=== PATIENT | male | born 1940 | race Caucasian/White ===

== ENCOUNTER 2017-08-20 08:20 | Emergency (ER) | payer OTHER, MEDICARE ==
[2017-08-20 08:53] VITALS: BP 162/72
--- NOTE | 2017-08-20 09:38 | UC ---
Theo Ellis Angela, [facility] 08/20/17 at 0900 . General HPI - HPI Summary HPI Summary: In Room Note: This pt is a 77 y/o male presenting to [facility] for muscle ache x2 days. Pt reports he was seen in his PCP's office 9 days ago and was diagnosed with pneumonia. His pulse ox 9 days ago was 94 (same as today). He was prescribed Levaquin for 10 days and has taken 9 pills of Levaquin so far. Pt didn't have a fever in the past 9 days. He reports still having a cough, but states it has improved since onset. Pt notes he has developed muscle ache in both upper arms, more left than right, and nausea after he started taking Levaquin. He states pain on the trapezius muscle on both sides, near the neck. Pt denies decreased ROM, fever, chest pain, abd pain. Pt reports that after he started Levaquin, his constipation has resolved. He has an upcoming appointment with his PCP on Monday , 08/25/17. Pt is a former smoker, quit 10-15 years ago. PMHx includes hypertension, hypothyroidism. MD Note: Visit history significant for hypothyroidism and hypertension, being treated. BP 162/72, pulse ox 94. Nurses Note: being treated with levaquin 750mg for pneumonia arrives with c/o muscle soreness and discomfort has not taken last dose - History of Current Complaint Chief Complaint: UCGeneralIllness Stated Complaint: SORE MUSCLES Time Seen by Provider: 08/20/17 08:54 Hx Obtained From: Patient Onset/Duration: Lasting Days, Still Present Timing: Constant Pain Location at: bilateral upper arms Associated Signs & Symptoms: Positive: Cough, Nausea, Other - myalgia. Negative : Abdominal Pain, Chest Pain, Fever - Allergy/Home Medications Allergies/Adverse Reactions: Allergies Allergy/AdvReac Type Severity Reaction Status Date / Time Levofloxacin Allergy muscle Verified 08/20/17 08:30 soreness Home Medications: Home Medications Levofloxacin [Levaquin] 750 mg PO DAILY 08/20/17 [History Confirmed 08/20/17] Levothyroxine TAB* [Synthorid 112 MCG TAB*] 112 mcg PO DAILY 08/20/17 [History Confirmed 08/20/17] Metoprolol Succinate [Metoprolol Succinate ER] 200 mg PO DAILY 08/20/17 [ History Confirmed 08/20/17] Simvastatin [Zocor 40 MG (NF)] 40 mg PO DAILY 08/20/17 [History Confirmed ] Terazosin CAP* [Hytrin CAP 5 MG*] 10 mg PO DAILY 08/20/17 [History Confirmed 06/27] Trimethoprim TAB* 100 mg PO DAILY 08/20/17 [History Confirmed 08/20/17] PMH/Surg Hx/FS Hx/Imm Hx - Additional Past Medical History Additional PMH: PMHx: chronic renal disease Endocrine History: Thyroid Disease - hypothyroidism Cardiovascular History: Hypertension - Family History Known Family History: Positive: Hypertension - mother - Social History Alcohol Use: None Substance Use Type: None Smoking Status (MU): Former Smoker Review of Systems Constitutional: Negative Skin: Negative Eyes: Negative ENT: Negative Respiratory: Cough Cardiovascular: Negative Gastrointestinal: Nausea, Other - NEG: vomiting, abd pain Genitourinary: Negative Motor: Negative Neurovascular: Negative Musculoskeletal: Myalgia Neurological: Negative Psychological: Negative All Other Systems Reviewed And Are Negative: Yes Physical Exam Triage Information Reviewed: Yes Vital Signs: Initial Vital Signs Temp 98 F 08/20/17 08:45 Pulse 68 08/20/17 08:45 Resp 16 08/20/17 08:45 BP 162/72 08/20/17 08:45 Pulse Ox 94 08/20/17 08:45 Vital Signs Reviewed: Yes - Additional Comments The patient is well-nourished in no acute distress and in no acute pain. The skin is warm and dry and skin color reflects adequate perfusion. HEENT: The head is normocephalic and atraumatic. The pupils are equal and reactive. The conjunctivae are clear and without drainage. Nares are patent and without drainage. Mouth reveals moist mucous membranes and the throat is without erythema and exudate. The external ears are intact. The ear canals are patent and without drainage. The tympanic membranes are intact. Neck is supple with full range of motion and non-tender. There are no carotid bruits. There is no neck vein distension. Respiratory: Chest is non-tender. Lungs are clear to auscultation and breath sounds are symmetrical and equal. THERE IS AN EXTENDED EXPIRATORY PHASE. Cardiovascular: Hear is regular rate and rhythm. There is no murmur or rub auscultated. There is no peripheral edema and pulses are symmetrical and equal. Abdomen: The abdomen is soft and non-tender. There are normal bowel sounds heard in all four quadrants and there is no organomegaly palpated. NO CVA TENDERNESS. Musculoskeletal: There is no back pain noted. Extremities are non-tender with full range of motion. There is good capillary refill. There is no peripheral edema or calf tenderness elicited. DISCOMFORT WITH RAISING THE ARMS. DISCOMFORT IN THE TRAPEZIUS REGION WITH RAISING THE ARMS. Neurological: Patient is alert and oriented to person, place and time. The patient has symmetrical motor strength in all four extremities. Cranial nerves are grossly intact. Deep tendon reflexes are symmetrical and equal in all four extremities. Psychiatric: The patient has an appropriate affect and does not exhibit any anxiety or depression. Course/Dx - Course Course Of Treatment: Medications have been included in the original chart and reviewed. Elevated BP but has current hypertension diagnosis. In the physical exam, the pt has AN EXTENDED EXPIRATORY PHASE. DISCOMFORT WITH RAISING THE ARMS. DISCOMFORT IN THE TRAPEZIUS REGION WITH RAISING THE ARMS. NO CVA TENDERNESS. COT: The pt has multiple medical problems including HTN, hypothyroidism, and chronic kidney disease. He developed muscle aches after 7 days on Levaquin. He also is experiencing nausea. It sounds as if his pneumonia is resolving. He has not had a temperature and his cough is less severe. I advised him to stop the Levaquin and to re-check with his doctor for increased muscle aches, fever, chest pain, or shortness of breath. He is scheduled to be seen by his physician in 5 days. He understands the need to be seen sooner if any of the above signs or symptoms occur. - Differential Dx - Multi-Symptom Differential Diagnoses: Other - Myopathy, muscle aches from URI, adverse drug reaction Provider Diagnoses: 1. Adverse drug reaction to Levaquin. 2. Resolving pneumonia Discharge - Discharge Plan Condition: Stable Disposition: HOME Patient Education Materials: Levofloxacin (By mouth), Community Acquired Pneumonia (ED) Referrals: Bryson Harrison DO [Primary Care Provider] - Additional Instructions: Your blood pressure reading today was 162/72. Follow-up with your primary care provider within 4 weeks for blood pressure readings and further evaluation. Thank you for helping us improve patient care by filling out the My Point Survey. WE DISCUSSED: 1. Your pneumonia is getting better. 2. You are having muscle aches from the Levaquin. Don't take final dose. Don' t take this drug in the future if you can take another drug. 3. See your doctor in 5 days; sooner for increased pain or signs of pneumonia such as shortness of breath, fever, increased cough. PLEASE SEEK CARE AT THE EMERGENCY DEPARTMENT IF SYMPTOMS WORSEN OR IF NEW SYMPTOMS DEVELOP. FOLLOW UP WITH YOUR PRIMARY CARE PHYSICIAN. The documentation as recorded by the Theo lopez Angela accurately reflects the service I personally performed and the decisions made by me, Car Arcos MD.
== END 2017-08-20 09:27 | disposition home or self-care (01) ==
LOC: UCEAST 08:20
DX: M79.1 Myalgia (principal); T37.8X5A Adverse effect of other specified systemic anti-infectives and antiparasitics, initial encounter; J18.9 Pneumonia, unspecified organism; I12.9 Hypertensive chronic kidney disease with stage 1 through stage 4 chronic kidney disease, or unspecified chronic kidney disease; N18.9 Chronic kidney disease, unspecified; E03.9 Hypothyroidism, unspecified; Z87.891 Personal history of nicotine dependence; Z88.1 Allergy status to other antibiotic agents
CPT/HCPCS: 99211; G0463

== ENCOUNTER 2019-02-09 09:09 | Emergency (ER) | payer MEDICARE, OTHER ==
--- OUTSIDE RECORDS SUMMARY | 2019-02-09 09:17 | XMS REPORT | Continuity of Care Document ---
:1940 External Reference #:[id number] Author Name Hui Norton NP Address [address] [place] [address] Care Team Providers Name Role Phone Farhan Gregg M.D. Care Team Information Peer Support Specialist Unavailable Payers Date Identification Numbers Payment Provider Subscriber Policy Number: [id number] Medicare Chris Eaton PayID: [id number] [address] [place] [address] Policy Number: [id number] [employer] Chris Eaton Group Name: [id number] [address] [place] [address] Social History Type Date Description Comments Sex Unknown Marital Status Occupation Retired Tobacco Use Start: Unknown Currently Smokes an Occasional Cigar ETOH Use Never used alcohol Allergies, Adverse Reactions, Alerts Description No Known Drug Allergies Medications Active Medications SIG Qnty Indications Ordering Provider Date Simvastatin qday Unknown 40mg Tablets Metoprolol Succinate ER qday Unknown 200mg Tablets ER 24HR Terazosin HCL qhs Unknown 10mg Capsules Levothyroxine Sodium qday Unknown 125mcg Tablets Aspirin 81mg qday Unknown Tablets DR History Medications Methenamine Hippurate qday Unknown - 06/11/2012 1gm Tablets Glenn Low Strength Unknown - 07/15/[address] Trimethoprim 1 tab po qd Unknown - 01/17/2019 100mg Tablets Vital Signs Date Vital Result Comment 01/17/2019 10:44am Weight 206.00 lb Height 64 inches 5'4" BMI (Body Mass Index) 35.4 kg/m2 BP Systolic 153 mmHg BP Diastolic 71 mmHg Heart Rate 61 /min O2 % BldC Oximetry 94 % Body Temperature 97.0 F Henley Score 6 Pain Level 0 12/07/2017 9:00am Weight 205.12 lb Height 64 inches 5'4" BMI (Body Mass Index) 35.2 kg/m2 BP Systolic 129 mmHg BP Diastolic 70 mmHg Heart Rate 55 /min O2 % BldC Oximetry 97 % Body Temperature 96.8 F Henley Score 7 Pain Level 0 08/25/2015 9:03am Weight 217.50 lb Height 64 inches 5'4" BMI (Body Mass Index) 37.3 kg/m2 BP Systolic 132 mmHg BP Diastolic 78 mmHg Heart Rate 55 /min O2 % BldC Oximetry 97 % Body Temperature 97.9 F Henley Score 3 Pain Level 0 08/19/2014 10:05am Weight 220.38 lb Height 64 inches 5'4" BMI (Body Mass Index) 37.8 kg/m2 BP Systolic 140 mmHg BP Diastolic 70 mmHg Heart Rate 65 /min O2 % BldC Oximetry 97 % Body Temperature 97.8 F Henley Score 7 Neck Circumference in inches 18 Pain Level 0 07/15/2013 10:27am Weight 219.00 lb Height 64 inches 5'4" BMI (Body Mass Index) 37.6 kg/m2 BP Systolic 140 mmHg BP Diastolic 78 mmHg Heart Rate 75 /min O2 % BldC Oximetry 98 % Body Temperature 97.7 F epworth-/24 06/11/2012 8:15am Weight 204.00 lb Height 64 inches 5'4" BMI (Body Mass Index) 35.0 kg/m2 BP Systolic 142 mmHg BP Diastolic 82 mmHg Heart Rate 66 /min O2 % BldC Oximetry 94 % Body Temperature 96.9 F Neck 17.25 inches, Epw 04/0305/09/2011 8:37am Weight 197.12 lb Height 64 inches 5'4" BMI (Body Mass Index) 33.8 kg/m2 BP Systolic 126 mmHg BP Diastolic 80 mmHg Heart Rate 52 /min O2 % BldC Oximetry 96 % Body Temperature 97.3 F 04/27/2010 9:55am Weight 197.00 lb Height 64.5 inches 5'4.50" BMI (Body Mass Index) 33.3 kg/m2 BP Systolic 148 mmHg BP Diastolic 80 mmHg Heart Rate 54 /min O2 % BldC Oximetry 98 % Body Temperature 98.1 F 10/26/2009 2:56pm Weight 199.12 lb Height 64.5 inches 5'4.50" BMI (Body Mass Index) 33.6 kg/m2 BP Systolic 130 mmHg BP Diastolic 80 mmHg Heart Rate 64 /min O2 % BldC Oximetry 95 % Body Temperature 97.8 F Neck-16.75" Procedures Date Code Description Status 12/27/2009 97013 Sleep Stage 4 Or More Cpap Titra Completed 11/22/2009 91133 Sleep Staging 4Or More Para Completed Encounters Type Date Location Provider Dx Diagnosis Office Visit 01/17/2019 Main Office Hui Norton G47.33 Obstructive sleep 10:45a [employer] apnea (adult) (pediatric) Office Visit 12/07/2017 Main Office Hui Norton G47.33 Obstructive sleep 8:45a [employer] apnea (adult) (pediatric) Office Visit 08/25/2015 Main Office Hui Norton G47.33 Obstructive sleep 8:45a [employer] apnea (adult) (pediatric) Office Visit 08/19/2014 Main Office Hui Norton, 327.23 Obstructive Sleep 10:00a [employer] Apnea Adult & Pediatric Office Visit 07/15/2013 Main Office Gurwinder 327.23 Obstructive Sleep 10:15a [place] Cal[place] Apnea Adult & Pediatric Office Visit 06/11/2012 Main Office Gurwinder, 327.23 Obstructive Sleep 8:15a [place] Apnea Adult & Pediatric 474.10 Hypertrophy Tonsils W/ Adenoids 995.3 Allergy Unspec Office Visit 05/09/2011 8:30a Main Office Gurwinder 327.23 Obstructive Sleep [place] Apnea Adult & Pediatric 470 Deviated Nasal Septum Office Visit 04/27/2010 10:00a Main Office Gurwinder 327.23 Obstructive Sleep [place] Apnea Adult & Pediatric Office Visit 12/08/2009 1:45p Main Office Farhan Gregg, 327.23 Obstructive Sleep M.DCasey Apnea Adult & Pediatric 470 Deviated Nasal Septum 780.50 Sleep Disturbance Unspec Office Visit 10/26/2009 3:00p Main Office Soha High PA 470 Deviated Nasal Septum 780.50 Sleep Disturbance Unspec
--- OUTSIDE RECORDS SUMMARY | 2019-02-09 09:17 | XMS REPORT | Continuity of Care Document ---
:1940 External Reference #:[id number] Author Name Tamica George Care Team Providers Name Role Phone Pee Gannon MD Care Team Information Ship Surveyor Unavailable Pee Gannon MD Primary Care Physician Unavailable Payers Date Identification Numbers Payment Provider Subscriber Policy Number: [id number] Medicare Chris Eaton PayID: [id number] [address] [place] [address] Policy Number: [id number] [facility] Chris Eaton Group Name: [id number] [address] [place] [address] Social History Type Date Description Comments Sex [...] Oximetry 94 % Body Temperature 97.0 F Pain Level 0 12/07/2017 9:00am Weight 205.12 lb Height 64 inches 5'4" BMI (Body Mass Index) 35.2 kg/m2 BP Systolic 129 mmHg BP Diastolic 70 mmHg Heart Rate 55 /min O2 % BldC Oximetry 97 % Body Temperature 96.[address] Score 7 Pain Level 0 08/25/2015 9:03am Weight 217.50 lb Height 64 inches 5'4" BMI (Body Mass Index) 37.3 kg/m2 BP Systolic 132 mmHg BP Diastolic 78 mmHg Heart Rate 55 /min O2 % BldC Oximetry 97 % Body Temperature 97.[address] Score 3 Pain Level 0 08/19/2014 10:05am Weight 220.38 lb Height 64 inches 5'4" BMI (Body Mass Index) 37.8 kg/m2 BP Systolic 140 mmHg BP Diastolic 70 mmHg Heart Rate 65 /min O2 % BldC Oximetry 97 % Body Temperature 97.[address] Score 7 Neck Circumference in inches 18 [...] Temperature 96.9 F Neck 17.25 inches, Epw 24 05/09/2011 8:37am Weight 197.12 lb Height 64 inches [...] Neck-16.75" Procedures Date Code Description Status 12/27/2009 31092 Sleep Stage 4 Or More Cpap Titra Completed 11/22/2009 94438 Sleep Staging 4Or More Para Completed Encounters Type Date Location Provider Dx Diagnosis Office Visit 12/07/2017 Main Office Hui Norton, G47.33 Obstructive sleep 8:45a RN [facility] apnea (adult) (pediatric) Office Visit 08/25/2015 Main Office Hui Norton G47.33 Obstructive sleep 8:45a RN [facility] apnea (adult) (pediatric) Office Visit 08/19/2014 Main Office Hui Norton, 327.23 Obstructive Sleep 10:00a RN [facility] Apnea Adult & Pediatric Office Visit 07/15/2013 [...]
[2019-02-09 09:23] VITALS: BP 160/89
--- NOTE | 2019-02-09 09:29 | UC ---
Respiratory Complaint HPI - HPI Summary HPI Summary: 78 y/o male presents to the urgent care c/o productive cough w/ yellowish phlegm for the past month. Pt reports symptoms started w/ the common cold, nasal congestion, sinus pressure and moderate yellowish PND. He thinks symptoms are coming down to his chest for the past week. He developed mild wheezing last night. He stopped smoking a few years ago. He has has Hx of pneumonia in the past. He hs taken OTC medications w/o any improvement. He went to his PCP about a week ago and Rx Nasal spray and advised symptomatic treatment. Pt denies fever, chill, SOB, chest pain, abdominal pain, N/V/D. - History of Current Complaint Chief Complaint: UCRespiratory Stated Complaint: CHEST CONGESTION Time Seen by Provider: 02/09/19 09:28 Hx Obtained From: Patient Onset/Duration: Gradual Onset, Lasting Weeks - 4 weeks, Still Present, Worse Since - 3 days Timing: Intermittent Episodes Severity Initially: Mild Severity Currently: Moderate Pain Intensity: 0 Pain Scale Used: 0-10 Numeric Character: Cough: Productive, Sputum Description: - yellowish Aggravating Factors: Recumbent Position Alleviating Factors: OTC Meds Associated Signs And Symptoms: Positive: Wheezing - mild last night, URI, Nasal Congestion, Sinus Discomfort. Negative: Fever, Chills - Risk Factors Pulmonary Embolism Risk Factors: Negative Cardiac Risk Factors: Negative Pseudomonas Risk Factors: Negative Tuberculosis Risk Factors: Negative - Allergies/Home Medications Allergies/Adverse Reactions: Allergies Allergy/AdvReac Type Severity Reaction Status Date / Time levofloxacin Allergy See Comment Verified 02/09/19 09:24 PMH/Surg Hx/FS Hx/Imm Hx Previously Healthy: Yes Endocrine History: Hypothyroidism, Dyslipidemia Cardiovascular History: Hypertension - Surgical History Surgical History: None - Family History Known Family History: Positive: Cardiac Disease, Hypertension - mother, Diabetes - Social History Occupation: Employed Full-time Lives: With Family Alcohol Use: None Substance Use Type: None Smoking Status (MU): Former Smoker Review of Systems All Other Systems Reviewed And Are Negative: Yes Constitutional: Positive: Negative Skin: Positive: Negative Eyes: Positive: Negative ENT: Positive: Nasal Discharge - yellowish, Sinus Congestion, Sinus Pain/ Tenderness, Other - PND moderate yellowish Respiratory: Positive: Cough - productive cough w/ yellowish phlegm, Other - mild wheezing since last night Cardiovascular: Positive: Negative Gastrointestinal: Positive: Negative Genitourinary: Positive: Negative Motor: Positive: Negative Neurovascular: Positive: Negative Musculoskeletal: Positive: Negative Neurological: Positive: Negative Psychological: Positive: Negative Is Patient Immunocompromised?: No Physical Exam - Summary Physical Exam Summary: Vital Signs Reviewed: Yes General: well developed, well nourished obese male sitting in the examining table w/o any apparent distress Eyes: Positive: Conjunctiva Clear - PERRLA, EOMI, fundi grossly normal ENT: Positive: Normal ENT inspection, Hearing grossly normal, Pharynx normal, Nasal congestion - edematous and erythematous nasal mucosa, Nasal drainage - yellowish drainage, TMs normal. Negative: Tonsillar swelling, Tonsillar exudate Neck: Positive: Supple, Nontender, No Lymphadenopathy Respiratory: no orthopnea or dyspnea. Able to speak in full sentences, no retractions or accessory muscle use, no tripod position, stridor, or head bobbing. Positive breath sounds bilaterally. diffuse scattered rhonchi and mild on b/L lungs, mild wheezing in the posterior RT upper lung no crackles or rales. Cardiovascular: Positive: RRR, No Murmur, Pulses Normal, Brisk Capillary Refill Abdomen Description: Positive: Nontender, No Organomegaly, Soft. Negative: CVA Tenderness (R), CVA Tenderness (L) Bowel Sounds: Positive: Present Musculoskeletal Exam: Normal Musculoskeletal: Positive: Strength Intact, ROM Intact, No Edema Neurological Exam: Normal Psychological Exam: Normal Skin Exam: Normal Triage Information Reviewed: Yes Vital Signs: Initial Vital Signs Temp 98.5 F 02/09/19 09:20 Pulse 74 02/09/19 09:20 Resp 18 02/09/19 09:20 BP 160/89 02/09/19 09:20 Pulse Ox 95 02/09/19 09:20 Respiratory Course/Dx - Course Course Of Treatment: 78 y/o male presents to the urgent care c/o productive cough w/ yellowish phlegm for the past month. Pt reports symptoms started w/ the common cold, nasal congestion, sinus pressure and moderate yellowish PND. He thinks symptoms are coming down to his chest for the past week. He developed mild wheezing last night. He stopped smoking a few years ago. He has has Hx of pneumonia in the past. He hs taken OTC medications w/o any improvement. He went to his PCP about a week ago and Rx Nasal spray and advised symptomatic treatment. Pt denies fever, chill, SOB, chest pain, abdominal pain, N/V/D. Hx obtained. Pt w/ diffuse scattered rhonchi and mild on b/L lungs, mild wheezing in the posterior RT upper lung no crackles or rales on examination. O2sat:95. Chest X-ray ordered to r/o pneumonia. Impression: A MILD DEGREE OF PERIBRONCHIAL CUFFING COULD BE SEEN IN THE SETTING OF BRONCHITIS. INCREASED DENSITY OF THE PARENCHYMA COULD BE DUE TO MILD PULMONARY EDEMA as per radiologist. Pt used to be heavy smoker. Pt given Duoneb treatment ordered. Pt tolerated well treatment and lungs improved. Pt states feeling better. Pt will be Tx for Acute Bronchitis, Rx Doxycycline PO , Tessalon tabs, and albuterol Inhaler. Strongly advised to f/u with PCP for further management. He may be developing COPD. He also has elevated BP today, advised to decrease salt in his diet and monitor BP, if it continues to be elevated to f/u with her PCP. Pt understood and agreed with D/C instructions and left the clinic hemodynamically stable. - Differential Dx/Diagnosis Differential Diagnosis/HQI/PQRI: Bronchitis, Exacerbation Of COPD, Influenza, Sinusitis, Other - pneumonia Provider Diagnosis: Acute bronchitis, Uncontrolled hypertension Discharge - Sign-Out/Discharge Documenting (check all that apply): Patient Departure - D/C home All imaging exams completed and their final reports reviewed: Yes - Discharge Plan Condition: Stable Disposition: HOME Prescriptions: Albuterol HFA INHALER* [Ventolin HFA Inhaler*] 1 - 2 puff INH Q6H PRN #1 mdi PRN Reason: wheezing/cough Benzonatate CAP* [Tessalon 100 MG CAP*] 100 mg PO TID PRN #21 cap PRN Reason: Cough DOXYcycline CAP(*) [DOXYcycline 100MG CAP(*)] 100 mg PO BID #20 cap Patient Education Materials: Acute Bronchitis (ED) Referrals: Bryson Harrison DO [Primary Care Provider] - 2 Days Additional Instructions: 1-Please take full course of antibiotic to avoid resistance. Take yougurt w/ probitoics or Culturelle to protect your GI system 2-Take Tessalon PO tabs as directed and use the albuterol inhaler to alleviate cough. Increase fluid intake, rest and eat well. 3- If symptoms do not improve or worsen or your develop SOB with fever and severe wheezing please go immediately to the ER further evaluation and treatment. 4- F/u with your PCP in 2-3 days for further management you may be developing COPD 5-Your BP is elevated today. Please take your BP medications and decrease salt in your diet, monitor BP and if it continues to be elevated please f/u with your PCP for further management. If you develop chest pain, dizziness, visual disturbances, SOB, or severe GOMEZ please go immediately to the ER for further management - Billing Disposition and Condition Condition: STABLE Disposition: Home
[2019-02-09] MEDS ORDERED: Albuterol/Ipratropium NEB.SOL* Albuterol 2.5 MG/Ipratropium 0.5 MG 3 ML INH ONE (09:35)
== END 2019-02-09 10:43 | disposition home or self-care (01) ==
LOC: UCEAST 09:09
DX: J20.9 Acute bronchitis, unspecified (principal); I10 Essential (primary) hypertension; E03.9 Hypothyroidism, unspecified; E78.5 Hyperlipidemia, unspecified; Z87.891 Personal history of nicotine dependence
CPT/HCPCS: 71046; 99212; A9270-GY; G0463

== ENCOUNTER 2023-12-12 11:19 | Inpatient (IN) ==
[2023-12-12 11:59] LABS: Venous Bicarbonate HCO3 24.9 mmol/L (24-28)
[2023-12-12 12:04] LABS: ABS Lymphocytes 1.2 10^3/uL (1.0-4.8); ABS Neutrophils 5.8 10^3/uL (1.5-7.6); Hematocrit 39.9 % (38-53); Hemoglobin 13.9 g/dL (13.2-16.3); Mean Corpuscular Hemoglobin 32.5 pg (27-33); Mean Corpuscular Hgb Conc 34.8 g/dL (31-36); Mean Corpuscular Volume 93.4 fL (80-97); Mean Platelet Volume 9.8 fL (7.5-11.2); Platelet Count 189 10^3/uL (150-450); Red Blood Count 4.27 10^6/uL (4.06-5.63); Red Cell Distribution Width 13.4 % (12-17); White Blood Count 7.6 10^3/uL (3.6-10.2)
[2023-12-12 12:05] LABS: ABS Eosinophils 0.1 10^3/uL (0.0-0.5); ABS Monocytes 0.4 10^3/uL (0.0-1.1); ABS Nucleated RBC 0.01 10^3/ul; Eosinophil % 1.6 %; Lymphocyte % 15.5 %; Nucleated Red Blood Cells % 0.1 %/100WBC (0.0-0.8)
[2023-12-12 12:08] LABS: Urine Appearance Clear; Urine Bilirubin Negative (Negative); Urine Blood Negative (Negative); Urine Color Light-Yellow; Urine Glucose Negative (Negative); Urine Ketones Negative (Negative); Urine Nitrite Negative (Negative); Urine Protein Negative (Negative); Urine Specific Gravity 1.009 (1.002-1.030); Urine Urobilinogen Negative (Negative)
[2023-12-12] MEDS: NS 0.9% 1000 ml BAG 1,000 ML IV ONE (12:08)
[2023-12-12] MEDS: Charcoal ACTIVATED 25 GM/120 ML BTL PO ONE (12:13)
[2023-12-12 12:16] LABS: Activated Partial Thrombo Time 29.4 seconds (26.0-38.0); INR 1.05 (0.83-1.13)
[2023-12-12 12:29] LABS: High Sens Troponin Baseline 8 pg/mL (<20)
[2023-12-12 12:38] LABS: Urine Benzodiazepine Screen None Detected (None Detect); Urine Cannabinoids Screen None Detected (None Detect); Urine Opiates Screen None Detected (None Detect)
[2023-12-12] MEDS: Acetylcysteine IV 15,000 MG in D5W 250 ml BAG 200 ML IV ONE (12:44)
[2023-12-12 12:50] LABS: ALT 15 U/L (7-52); AST 18 U/L (13-39); Albumin 4.2 g/dL (3.2-5.2); Albumin/Globulin Ratio 1.5 (1-3); Alkaline Phosphatase 70 U/L (35-149); Anion Gap 11 mmol/L (2-16); Blood Urea Nitrogen 31 mg/dL (6-24); CO2 Carbon Dioxide 25 mmol/L (22-32); Calcium 9.4 mg/dL (8.6-10.3); Chloride 101 mmol/L (101-111); Creatinine, Serum 1.62 mg/dL (0.67-1.17); Globulin 2.8 g/dL (2-4); Glucose 194 mg/dL (70-100); Lipase 32 U/L (11.0-82.0); Potassium 4.5 mmol/L (3.5-5.0); Sodium 137 mmol/L (135-145); Total Bilirubin 0.4 mg/dL (0.2-1.0); eGFR CKD-EPI 41.9 (>60)
[2023-12-12 12:53] LABS: Acetaminophen 54 mcg/mL
[2023-12-12 13:00] LABS: TSH Ultra Thyroid Stim Horm 1.26 mcIU/mL (0.34-5.60)
[2023-12-12 13:02] LABS: Alcohol, S < 13 mg/dL (<13); Salicylate < 2.50 mg/dL (<30)
[2023-12-12 13:29] LABS: High Sensitivity Troponin 1 Hr 7 pg/mL (<20)
[2023-12-12] MEDS: Acetylcysteine IV 5,000 MG in D5W 500 ml BAG 500 ML IV ONE (13:58)
[2023-12-12] MEDS ORDERED: Atropine 0.1 MG/ML 10 ml SYR (1 mg) IV PUSH PRN ×2 (17:01→17:20)
[2023-12-12 17:10] LABS: Albumin/Globulin Ratio 1.5 (1-3); Calcium 8.8 mg/dL (8.6-10.3); Creatinine, Serum 1.52 mg/dL (0.67-1.17); Globulin 2.7 g/dL (2-4); Potassium 4.1 mmol/L (3.5-5.0); Total Bilirubin 0.4 mg/dL (0.2-1.0); Total Protein 6.7 g/dL (6.4-8.9); eGFR CKD-EPI 45.2 (>60)
[2023-12-12] MEDS: Enoxaparin 100 MG/ML SYR SUBCUT SCH (18:02)
[2023-12-12] MEDS: Acetylcysteine IV 10,000 MG in D5W 1000 ml BAG 1,000 ML IV ONE (18:03)
[2023-12-12 23:38] LABS: INR 1.25 (0.83-1.13)
[2023-12-13 00:24] LABS: Acetaminophen < 15 mcg/mL
[2023-12-13 00:32] LABS: ALT 15 U/L (7-52); Albumin/Globulin Ratio 1.4 (1-3); Alkaline Phosphatase 57 U/L (35-149); Globulin 2.8 g/dL (2-4); Total Bilirubin 0.5 mg/dL (0.2-1.0); Total Protein 6.8 g/dL (6.4-8.9)
[2023-12-13 01:58] LABS: Direct Bilirubin Redraw 0.1 mg/dL (0.1-0.5)
[2023-12-13 05:10] LABS: ABS Basophils 0.1 10^3/uL (0.0-0.1); ABS Eosinophils 0.1 10^3/uL (0.0-0.5); ABS Lymphocytes 1.9 10^3/uL (1.0-4.8); ABS Nucleated RBC 0.01 10^3/ul; Eosinophil % 0.5 %; Hematocrit 40.1 % (38-53); Hemoglobin 13.9 g/dL (13.2-16.3); Lymphocyte % 17.1 %; Mean Corpuscular Hemoglobin 32.5 pg (27-33); Mean Corpuscular Hgb Conc 34.7 g/dL (31-36); Mean Corpuscular Volume 93.8 fL (80-97); Mean Platelet Volume 9.9 fL (7.5-11.2); Nucleated Red Blood Cells % 0.1 %/100WBC (0.0-0.8); Platelet Count 201 10^3/uL (150-450); Red Blood Count 4.28 10^6/uL (4.06-5.63); Red Cell Distribution Width 13.5 % (12-17); White Blood Count 10.9 10^3/uL (3.6-10.2)
[2023-12-13 05:50] LABS: Albumin 3.9 g/dL (3.2-5.2); Albumin/Globulin Ratio 1.4 (1-3); Calcium 8.9 mg/dL (8.6-10.3); Creatinine, Serum 1.43 mg/dL (0.67-1.17); Globulin 2.7 g/dL (2-4); Magnesium 1.8 mg/dL (1.9-2.7); Potassium 3.7 mmol/L (3.5-5.0); Total Bilirubin 0.4 mg/dL (0.2-1.0); Total Protein 6.6 g/dL (6.4-8.9); eGFR CKD-EPI 48.6 (>60)
[2023-12-13] MEDS: Magnesium Sulfate 2 gm BAG 2 GM/50 ML BAG IVPB ONE (06:32)
[2023-12-13] MEDS ORDERED: Dextrose 50% Syringe 50 ml 25 GM/50 ML SYRINGE IV PUSH PRN (07:26)
[2023-12-13] MEDS: KCL 20 MEQ/100 ML IVPREMIX 20 MEQ/100 ML BAG IV ONE (07:51)
[2023-12-13 20:40] LABS: INR 1.19 (0.83-1.13)
[2023-12-13] MEDS: Morphine 2 MG/ML SYRINGE IV ONE (20:56)
[2023-12-13] MEDS: Nystatin TOP POWDER 15 GM BTL TOPICAL PRN (22:41)
[2023-12-14 06:05] LABS: ABS Basophils 0.1 10^3/uL (0.0-0.1); ABS Eosinophils 0.2 10^3/uL (0.0-0.5); ABS Lymphocytes 2.2 10^3/uL (1.0-4.8); ABS Monocytes 0.8 10^3/uL (0.0-1.1); ABS Neutrophils 6.3 10^3/uL (1.5-7.6); ABS Nucleated RBC 0.01 10^3/ul; Eosinophil % 2.1 %; Hematocrit 40.4 % (38-53); Hemoglobin 13.7 g/dL (13.2-16.3); Lymphocyte % 23.1 %; Mean Corpuscular Hemoglobin 31.7 pg (27-33); Mean Corpuscular Hgb Conc 33.8 g/dL (31-36); Mean Corpuscular Volume 93.9 fL (80-97); Nucleated Red Blood Cells % 0.1 %/100WBC (0.0-0.8); Platelet Count 191 10^3/uL (150-450); Red Cell Distribution Width 13.4 % (12-17); White Blood Count 9.6 10^3/uL (3.6-10.2)
[2023-12-14 06:10] LABS: INR 1.16 (0.83-1.13)
[2023-12-14 06:24] LABS: Calcium 9.1 mg/dL (8.6-10.3); Creatinine, Serum 1.3 mg/dL (0.67-1.17); Magnesium 2.1 mg/dL (1.9-2.7); Potassium 3.5 mmol/L (3.5-5.0); eGFR CKD-EPI 54.5 (>60)
[2023-12-14 09:11] VITALS: BP 128/70
== END 2023-12-14 12:50 | disposition home or self-care (01) | DRG 918 ==
LOC: ED 11:19 → SUATTDRO 14:06 → EDHOLD 14:06 → ICU 14:19 → MED 12-13 18:27
PROVIDERS: ADMIT Surgery Surgical Critical Care; ATTEND Student in an Organized Health Care Education/Training Program